=== PATIENT | female | born 1975 | race Caucasian/White ===

== ENCOUNTER 2019-03-14 14:36 | Observation (INO) | payer OTHER ==
[~2019-03-14] VITALS: Ht 152.4 cm; Wt 87.1 kg
[2019-03-14 14:53] VITALS: BP 131/78
--- NOTE | 2019-03-14 14:53 | NUR ---
pt arrived to ed c/o vag bleeding x 3 wk. pt states she has abd pain intermittently that radiates to lwoer back and rates 5/10. abd soft and round. describes pain as cramping. vss. denies any trauma or injury. nka. denies pmh.
--- NOTE | 2019-03-14 15:22 | NUR ---
PT AMBULATED TO BED
--- NOTE | 2019-03-14 15:36 | NUR ---
pt returned back from radiology.
--- NOTE | 2019-03-14 15:40 | NUR ---
US AT BEDSIDE.
[2019-03-14 15:43] LABS: APPEARANCE,URINE CLEAR (CLEAR); BILIRUBIN,URINE NEGATIVE (NEGATIVE); BLOOD, URINE 3+ (NEGATIVE); COLOR,URINE YELLOW (YELLOW); LEUKOCYTE ESTERASE ,URINE NEGATIVE (NEGATIVE); NITRITE, URINE NEGATIVE (NEGATIVE); UGLUCOSE NEGATIVE (NEGATIVE)
[2019-03-14 15:44] LABS: BASOPHILS % (AUTO) 0.6 % (0.0-2.0); EOSINOPHILS # (AUTO) 0.1 K/uL (0-0.4); EOSINOPHILS % (AUTO) 0.9 % (0.0-4.0); HEMATOCRIT 32.4 % (36-48); HEMOGLOBIN 10.7 g/dL (12.0-16.0); LYMPHOCYTES # (AUTO) 1.5 K/uL (2.5-16.5); LYMPHOCYTES % (AUTO) 19.2 % (20.5-51.1); MEAN CORPUSCULAR HEMOGLOBIN 30 pg (27-31); MEAN CORPUSCULAR HGB CONC 33 g/dL (33-37); MONOCYTES # (AUTO) 0.4 K/uL (0.8-1.0); NEUTROPHILS # (AUTO) 5.8 K/uL (1.8-7.7); NEUTROPHILS % (AUTO) 74.3 % (42.2-75.2); PLATELET COUNT (AUTO) 217 K/uL (140-450); RED BLOOD CELL COUNT(AUTO) 3.56 MIL/uL (4.20-5.40); RED CELL DISTRIBUTION WIDTH 13.7 % (11.6-13.7); WHITE BLOOD COUNT (AUTO) 7.7 K/uL (4.8-10.8)
[2019-03-14 15:59] LABS: ANION GAP 13.4 (8-16); CARBON DIOXIDE 25.4 mmol/L (21-32); CREATININE 1.3 mg/dL (0.6-1.3); POTASSIUM 3.8 mmol/L (3.5-5.1)
[2019-03-14 16:04] LABS: ALBUMIN 3.4 g/dL (3.4-5.0); TOTAL BILIRUBIN 0.3 mg/dL (0.0-1.0)
[2019-03-14 16:17] LABS: RBC,URINE 11-20 (MOD) /HPF (0-5); WBC,URINE NONE SEEN /HPF (0-5)
--- NOTE | 2019-03-14 17:05 | NUR ---
Dr. Ferrara evaluating patient at bedside.
--- NOTE | 2019-03-14 18:58 | NUR ---
OR NURSE BEDSIDE REPORT RECIEVED. TAKEN TO OR.
[2019-03-14] MEDS ORDERED: SEVOFLURANE 250 ML BTL INH ONE (19:04)
[2019-03-14] MEDS ORDERED: PROPOFOL 200 MG/20 ML VIAL IV ONE (19:04)
[2019-03-14] MEDS ORDERED: LIDOCAINE 2% 100 MG/5 ML SYR IVP ONE (19:04)
[2019-03-14] MEDS ORDERED: MIDAZOLAM 2 MG/2 ML VIAL ONE (19:09)
[2019-03-14] MEDS ORDERED: ONDANSETRON 4 MG/2 ML VIAL IVP PRN (19:40)
[2019-03-14] MEDS ORDERED: HYDROmorphone 1 MG/ML AMP IVP PRN (19:40)
[2019-03-14] MEDS ORDERED: HYDROmorphone PFS 2 MG/ML SYR ONE (20:27)
--- NOTE | 2019-03-14 20:55 | NUR ---
Admitted from ED then went straight to OR for D&C, with chief complaint of VAGINAL BLEEDING FOR A MONTH. Pt is a 43 y/o ,Female, Appropriate, awake, alert and orientedx4. Pt oriented to call light, bed, phone,television, bathroom, smoking policy, visiting hours, procedures, ID bracelet on. Pt asking for something to drink. Informed her she can have ice chips for now then if she tolerates it will give juice then sandwich eventually if she's nauseated, will give sandwich. Pt verbalized understanding. Will collect MRSA swab.
--- NOTE | 2019-03-14 21:40 | NUR ---
PT WENT TO BATHROOM W/ LISA FLORES ASSISTANCE. SANDWICH GIVEN PER REQUEST.
--- NOTE | 2019-03-14 21:50 | NUR ---
PT GOT BACK FROM THE BATHROOM AND COMPLAINING OF FEELING DIZZY AND NAUSEATED AFTER DRINKING ORANGE JUICE. PT WANTS TO WAIT UNTIL SHE FEELS BETTER. WILL CONTINUE TO MONITOR.
--- NOTE | 2019-03-14 23:00 | NUR ---
CHECKED ON PT AND ASKED IF SHE'S READY. PT DOESN'T KNOW. AT BEDSIDE AND BROUGHT SOME FOOD. INFORMED PT THAT IF SHE'S NOT READY YET TO LET US KNOW SO WE CAN CALL THE DOCTOR. INFORMED HER SHE CAN'T BE FORCED TO GO HOME IF SHE'S NOT READY. PT AND VERBALIZED UNDERSTANDING. SAID TO CHECK AFTER 30MINS.
--- NOTE | 2019-03-14 23:30 | NUR ---
SEEN PT AWAKE. ASKED PT IF SHE'S READY. PT SAID "OK". WILL PRINT DISCHARGE INSTRUCTIONS. PT ABLE TO EAT YOGURT BROUGHT BY FAMILY. NO DISCOMFORT NOTED.
[2019-03-14 23:41] VITALS: BP 126/78
--- NOTE | 2019-03-14 23:55 | NUR ---
PT'S IV ACCESS ON LEFT AC REMOVED. CANNULA INTACT. APPLIED PRESSURE AND BANDAID APPLIED. DISCHARGE INSTRUCTIONS EXPLAINED AND PT VERBALIZED UNDERSTANDING. NO PRESCRIPTION ORDERED. PT SIGNED AND COPY GIVEN. BELONGINGS COMPLETE.
--- NOTE | 2019-03-15 | NUR ---
PT LEFT VIA WHEELCHAIR ACCOMPANIED BY FAMILY. WRIST BAND REMOVED.
== END 2019-03-15 | disposition home or self-care (01) ==
LOC: MED 14:36 → MMU 18:03
PROVIDERS: ADMIT Obstetrics & Gynecology; ATTEND Obstetrics & Gynecology
DX: N92.0 Excessive and frequent menstruation with regular cycle (principal); D25.9 Leiomyoma of uterus, unspecified; N85.00 Endometrial hyperplasia, unspecified
CPT/HCPCS: 36415; 58120; 76856; 80053; 81001; 84703; 85025; 85610; 85730; 87081; 88305; 99285; G0378; J1170; J2001; J2250; J2704; J7030; Q0092

== ENCOUNTER 2019-05-30 15:01 | Emergency (ER) | payer OTHER ==
[~2019-05-30] VITALS: Ht 154.9 cm; Wt 64.9 kg
[2019-05-30 15:18] VITALS: BP 127/88
--- NOTE | 2019-05-30 15:49 | NUR ---
PT AMBULATED TO BED 12.
--- NOTE | 2019-05-30 15:52 | NUR ---
43 y/o f with c/c vaginal bleeding, h/a, dizzy x5 days. pt nka. no hx. no rx. pt denies n/v/d. pt denies hx of blood transfusion in past; no hx of anemia. side rail x1.
--- NOTE | 2019-05-30 16:03 | NUR ---
ULTRASOUND AT BEDSIDE
[2019-05-30 16:06] LABS: APPEARANCE,URINE CLEAR (CLEAR); BILIRUBIN,URINE NEGATIVE (NEGATIVE); BLOOD, URINE 3+ (NEGATIVE); COLOR,URINE YELLOW (YELLOW); LEUKOCYTE ESTERASE ,URINE NEGATIVE (NEGATIVE); NITRITE, URINE NEGATIVE (NEGATIVE); PH,URINE 6.5 (5.0-9.0); UGLUCOSE NEGATIVE (NEGATIVE)
[2019-05-30 16:08] LABS: BASOPHILS % (AUTO) 0.5 % (0.0-2.0); HEMATOCRIT 28.2 % (36-48); HEMOGLOBIN 9.4 g/dL (12.0-16.0); LYMPHOCYTES # (AUTO) 1.5 K/uL (2.5-16.5); LYMPHOCYTES % (AUTO) 30.7 % (20.5-51.1); MEAN CORPUSCULAR HEMOGLOBIN 30 pg (27-31); MEAN CORPUSCULAR HGB CONC 33 g/dL (33-37); MEAN CORPUSCULAR VOLUME 90.2 fL (80-94); MONOCYTES # (AUTO) 0.3 K/uL (0.8-1.0); MONOCYTES % (AUTO) 6.1 % (1.7-9.3); NEUTROPHILS # (AUTO) 2.9 K/uL (1.8-7.7); NEUTROPHILS % (AUTO) 61.7 % (42.2-75.2); PLATELET COUNT (AUTO) 214 K/uL (140-450); RED BLOOD CELL COUNT(AUTO) 3.13 MIL/uL (4.20-5.40); RED CELL DISTRIBUTION WIDTH 14.6 % (11.6-13.7); WHITE BLOOD COUNT (AUTO) 4.7 K/uL (4.8-10.8)
[2019-05-30 16:30] LABS: RBC,URINE 11-20 (MOD) /HPF (0-5); WBC,URINE NONE SEEN /HPF (0-5)
[2019-05-30 16:46] LABS: PROTHROMBIN TIME 9.4 secs (10.8-13.4)
[2019-05-30 17:17] VITALS: BP 127/83
--- NOTE | 2019-05-30 17:17 | NUR ---
Patient discharged with v/s stable. Written and verbal after care instructions given and explained. Patient verbalized understanding. Ambulatory with steady gait. All questions addressed prior to discharge. Advised to follow up with PMD.
== END 2019-05-30 17:17 | disposition home or self-care (01) ==
LOC: MED 15:01
DX: N93.9 Abnormal uterine and vaginal bleeding, unspecified (principal); N92.0 Excessive and frequent menstruation with regular cycle; D64.9 Anemia, unspecified; R79.1 Abnormal coagulation profile; R51 Headache
CPT/HCPCS: 36415; 76830; 81001; 84702; 85025; 85610; 85730; 99284; Q0092

== ENCOUNTER 2021-12-26 11:13 | Emergency (ER) | payer OTHER ==
[~2021-12-26] VITALS: Ht 170.2 cm; Wt 99.8 kg
[2021-12-26 11:17] VITALS: BP 173/135
--- NOTE | 2021-12-26 11:24 | NUR ---
pt taken to bed 5 via jesus alberto, seizure pads in place
--- NOTE | 2021-12-26 11:40 | NUR ---
Patient was assisted to the restroom.
--- NOTE | 2021-12-26 11:58 | NUR ---
lab at bedside
[2021-12-26 12:12] LABS: BASOPHILS % (AUTO) 0.4 % (0.0-2.0); EOSINOPHILS % (AUTO) 1.3 % (0.0-4.0); HEMATOCRIT 38.6 % (36-48); LYMPHOCYTES # (AUTO) 1.1 K/uL (2.5-16.5); MEAN CORPUSCULAR HEMOGLOBIN 30 pg (27-31); MEAN CORPUSCULAR HGB CONC 34 g/dL (33-37); MEAN CORPUSCULAR VOLUME 90.2 fL (80-94); MONOCYTES # (AUTO) 0.2 K/uL (0.8-1.0); MONOCYTES % (AUTO) 5.4 % (1.7-9.3); NEUTROPHILS # (AUTO) 2.5 K/uL (1.8-7.7); NEUTROPHILS % (AUTO) 63.9 % (42.2-75.2); PLATELET COUNT (AUTO) 162 K/uL (140-450); RED BLOOD CELL COUNT(AUTO) 4.28 MIL/uL (4.20-5.40); RED CELL DISTRIBUTION WIDTH 12.6 % (11.6-13.7); WHITE BLOOD COUNT (AUTO) 3.9 K/uL (4.8-10.8)
[2021-12-26] MEDS ORDERED: levETIRAcetam 1,500 MG in NACL 0.9% 100 ML IV ONE (13:20)
--- NOTE | 2021-12-26 13:30 | NUR ---
PATIENT OBSERVED TO HAVE TONIC CLONIC SEIZURE, PATIENT PLACED ON LEFT SIDE. ORAL TRAUMA NOTED, DR. MONTGOMERY AWARE.
[2021-12-26 13:52] LABS: ALBUMIN 3.7 g/dL (3.4-5.0); ANION GAP 16.8 (8-16); ASPARTATE AMINOTRANSFERASE 27 U/L (15-37); CHLORIDE 104 mmol/L (98-107); CREATININE 1.6 mg/dL (0.6-1.3); GFR ARICAN-AMERICAN 44 mL/min (>90); GLUCOSE 168 mg/dL (74-106); POTASSIUM 3.8 mmol/L (3.5-5.1); SODIUM SERUM 138 mmol/L (136-145); TOTAL BILIRUBIN 0.4 mg/dL (0.0-1.0); UREA NITROGEN, BLOOD 31 mg/dL (7-18)
[2021-12-26] MEDS ORDERED: KEP500 PO (15:03)
--- NOTE | 2021-12-26 15:30 | NUR ---
Patient discharged with v/s stable. Written and verbal after care instructions given. Patient alert, oriented and verbalized understanding of instructions. Wheel Chair Assisted with to car. All questions addressed prior to discharge. ID band removed. Patient advised to follow up with PMD. Rx of Sadiq given. Opportunity to ask questions provided and answered.
[2021-12-26 15:32] VITALS: BP 117/73
--- NOTE | 2021-12-26 15:35 | NUR ---
The patient's care was reviewed and supervised by Berkley Chavez RN.
== END 2021-12-26 15:32 | disposition home or self-care (01) ==
LOC: MED 11:13
DX: R56.9 Unspecified convulsions (principal); K14.8 Other diseases of tongue
CPT/HCPCS: 36415; 80053; 81025; 85025; 93005; 96365; 99284; J1953

== ENCOUNTER 2023-05-01 08:40 | Day surgery (SDC) | payer OTHER ==
[~2023-05-01] VITALS: Ht 157.5 cm; Wt 88.0 kg
[~2023-05-01 08:40] MED LIST: KEP500 PO
[2023-05-01] MEDS ORDERED: fentaNYL citrate 0.05 MG/ML VIAL ONE (12:02)
[2023-05-01] MEDS ORDERED: LIDOCAINE 2% 100 MG/5 ML UJET TP ONE (12:03)
[2023-05-01] MEDS ORDERED: MIDAZOLAM 2 MG/2 ML VIAL ONE (12:03)
[2023-05-01] MEDS ORDERED: MIDAZOLAM 2 MG/2 ML VIAL IVP ONE (14:20)
[2023-05-01] MEDS ORDERED: fentaNYL citrate 0.05 MG/ML VIAL IVP ONE (14:20)
== END 2023-05-01 13:50 | disposition home or self-care (01) ==
LOC: MDS 08:40 → MMU 08:49 → MDS 13:50
PROVIDERS: ATTEND Internal Medicine Gastroenterology
DX: R14.0 Abdominal distension (gaseous) (principal); K29.70 Gastritis, unspecified, without bleeding; K21.9 Gastro-esophageal reflux disease without esophagitis; R10.10 Upper abdominal pain, unspecified; Z79.899 Other long term (current) drug therapy
CPT/HCPCS: 36415; 43239; 45378; 86677; J2250; J3010